=== PATIENT | female | born 1950 | race Caucasian/White ===

== ENCOUNTER → 2018-01-25 | Day surgery (SDC) | payer OTHER ==
[~2018-01-25] MED LIST: ASPIR 8181 MG PO; ATORVASTATIN CA20 MG PO; DITROPAN XL10 MG PO; INTESTINEX680 M1 PO; LISINOPRIL5 MG PO; MACROBID 100 M100 MG PO; MAXIMUM D310000 UNIT PO; PENTASA500 MG PO; RANITIDINE HCL300 M1 PO; ULTRACET PO; [UNRECOGNIZED DRUG - OTHER] PO
== END | disposition home or self-care (01) ==
LOC: ADM 01-19 08:00 → CIR.AMB 07:40
DX: N81.5 Vaginal enterocele (principal); N81.6 Rectocele